=== PATIENT | female | born 1975 | race African-American/Black ===

== ENCOUNTER 2018-09-15 18:15 | Inpatient (IN) | payer OTHER ==
[~2018-09-15] VITALS: Ht 165.1 cm; Wt 102.5 kg
[2018-09-15 18:18] VITALS: Ht 165.1 cm; Wt 102.5 kg
[2018-09-15 20:43] LABS: CALCIUM 8.8 mg/dL (8.5-10.1); CREATININE SERUM 1.4 mg/dL (0.6-1.0)
[2018-09-15 20:45] LABS: PLATELET COUNT 245 x10^3mcL (130-400)
[2018-09-15 20:47] LABS: ALBUMIN 3.5 g/dL (3.4-5.0); BILIRUBIN TOTAL 0.1 mg/dL (0.20-1.00); TOTAL PROTEIN, SERUM 7.3 g/dL (6.4-8.2)
[2018-09-15 20:49] LABS: RED CELL DISTRIBUTION WIDTH 17.7 % (11.5-14.5)
[2018-09-15 21:35] LABS: AMPHETAMINE QUAL UR NONE DETECTED (See below)
[2018-09-15 22:34] LABS: SEGMENTED NEUTROPHILS 46 % (37-75)
[2018-09-15 22:35] LABS: BAND NEUTROPHIL 3 % (0-10); BASOPHIL 1 % (0-2); MONOCYTE 7 % (0-7)
[2018-09-15 22:36] LABS: rbc morphology (normal/abnorm) ABNORMAL (NORMAL); schistocyte (helmet cell) 1+; tear drop cell (dacryocyte) 1+
[2018-09-15 22:37] LABS: PLATELET MORPHOLOGY PLATELETS NORMAL
[2018-09-15] MEDS ORDERED: NATURAL IRON65 MG PO (22:38)
[2018-09-15] MEDS ORDERED: CARVEDILOL6.25 M1 PO (22:38)
[2018-09-15] MEDS ORDERED: DECADRON4 MG PO (22:39)
[2018-09-16 00:06] VITALS: BP 124/68
[2018-09-16 01:41] LABS: CHOLESTEROL/HDL RATIO 3.7; MAGNESIUM 1.7 mg/dL (1.8-2.4); PHOSPHOROUS 3.9 mg/dL (2.5-4.9)
[2018-09-16 05:29] VITALS: BP 102/65
[2018-09-16 07:55] LABS: UA SPECIFIC GRAVITY >=1.030 (1.005-1.035); microscopic required? YES; urine erythrocyte NEGATIVE (NEGATIVE)
[2018-09-16 09:28] VITALS: BP 122/55
[2018-09-16 12:32] VITALS: BP 119/72
[2018-09-16 16:34] VITALS: BP 119/74
[2018-09-16 20:48] VITALS: BP 130/65
[2018-09-17 04:29] VITALS: BP 113/62
[2018-09-17 06:20] LABS: CALCIUM 8.7 mg/dL (8.5-10.1); CARBON DIOXIDE 29.8 mmol/L (21-32); CREATININE SERUM 1.2 mg/dL (0.6-1.0); MAGNESIUM 1.8 mg/dL (1.8-2.4); PHOSPHOROUS 4.4 mg/dL (2.5-4.9); POTASSIUM SERUM 4.2 mmol/L (3.5-5.1)
[2018-09-17 08:53] VITALS: BP 130/60
[2018-09-17 09:51] LABS: PLATELET COUNT 191 x10^3mcL (130-400)
[2018-09-17 12:20] VITALS: BP 130/60
[2018-09-17] MEDS ORDERED: PROTONIX20 MG PO (12:26)
[2018-09-17] MEDS ORDERED: MYCLUD PO (12:57)
[2018-09-17 16:10] LABS: BAND NEUTROPHIL 3 % (0-10); MONOCYTE 12 % (0-7); SEGMENTED NEUTROPHILS 39 % (37-75)
[2018-09-17 16:11] LABS: rbc morphology (normal/abnorm) ABNORMAL (NORMAL); schistocyte (helmet cell) 1+; tear drop cell (dacryocyte) 1+
[2018-09-17 16:12] LABS: PLATELET MORPHOLOGY PLATELETS NORMAL
== END 2018-09-17 13:06 | disposition home or self-care (01) | DRG 203 ==
LOC: ED 18:15 → DU 22:23
PROVIDERS: Emergency Medicine; Internal Medicine
DX: M94.0 Chondrocostal junction syndrome [Tietze] (principal); N17.0 Acute kidney failure with tubular necrosis; D70.1 Agranulocytosis secondary to cancer chemotherapy; C50.912 Malignant neoplasm of unspecified site of left female breast; D63.0 Anemia in neoplastic disease; Z68.37 Body mass index [BMI] 37.0-37.9, adult; Z79.899 Other long term (current) drug therapy
CPT/HCPCS: 82652; 85378; J1885; J7030; Q0092